=== PATIENT | female | born 1995 ===

== ENCOUNTER 2017-07-27 17:31 | Emergency (ER) | payer OTHER ==
[2017-07-27 18:20] VITALS: BP 125/72; PULSE 65; RESP 16; TEMP 99.2; O2SAT 99
--- NOTE | 2017-07-27 18:46 | ED PDOC ---
HPI: Skin/Bite Injury Time Seen by Provider: 07/27/17 18:22 Chief Complaint (Nursing): Abnormal Skin Integrity Chief Complaint (Provider): Rash History Per: Patient History/Exam Limitations: no limitations Onset/Duration Of Symptoms: Days (x 3) Current Symptoms Are (Timing): Still Present Quality Of Symptoms: Itching Additional Complaint(s): Brandy is a 21 y/o female with a history of hypertension who presents to the ED complaining of an itchy rash all over her body for the past 3 days. Patient denies any new foods, lotions, soaps, detergents or new medications. She has no known allergies. No fever or chills, no throat discomfort or shortness of breath. PMD: None Past Medical History Reviewed: Historical Data, Nursing Documentation, Vital Signs Vital Signs: Last Vital Signs Temp 99.2 F 07/27/17 18:18 Pulse 65 07/27/17 18:18 Resp 16 07/27/17 18:18 BP 125/72 07/27/17 18:18 Pulse Ox 99 07/27/17 18:48 - Medical History PMH: HTN - Surgical History Surgical History: No Surg Hx - Family History Family History: States: No Known Family Hx - Living Arrangements Living Arrangements: With Family - Social History Current smoker - smoking cessation education provided: No Alcohol: None Drugs: Denies - Immunization History Hx Tetanus Toxoid Vaccination: No Hx Influenza Vaccination: No Hx Pneumococcal Vaccination: No - Home Medications Home Medications: Ambulatory Orders Medication Instructions Recorded Doxycycline Hyclate 100 mg PO BID #28 cap 01/02/17 Mupirocin 2% Cream [Bactroban 2%] 30 gm EXT BID #3 tube 01/02/17 Ibuprofen [Motrin] 600 mg PO TID #21 tab 03/19/17 Unknown Antihypertensive. 03/19/17 traMADol [Ultram] 50 mg PO Q6 PRN #15 tab 03/19/17 DiphenhydrAMINE [Benadryl] 25 mg PO Q6H #1 bottle 07/27/17 Prednisone 50 mg PO DAILY #5 tablet 07/27/17 - Allergies Allergies/Adverse Reactions: Allergies Allergy/AdvReac Type Severity Reaction Status Date / Time No Known Allergies Allergy Verified 01/02/17 14:54 Review of Systems ROS Statement: Except As Marked, All Systems Reviewed And Found Negative Constitutional: Negative for: Fever, Chills ENT: Negative for: Throat Pain, Throat Swelling Respiratory: Negative for: Shortness of Breath Skin: Positive for: Rash Physical Exam - Reviewed Nursing Documentation Reviewed: Yes Vital Signs Reviewed: Yes - Physical Exam Appears: Positive for: Well, Non-toxic, No Acute Distress Head Exam: Positive for: ATRAUMATIC Skin: Positive for: Rash (Scattered urticarial maculopapular lesions noted to entire body) Cardiovascular/Chest: Positive for: Regular Rate, Rhythm. Negative for: Murmur Respiratory: Positive for: Normal Breath Sounds. Negative for: Respiratory Distress Extremity: Positive for: Normal ROM, Deformity. Negative for: Pedal Edema Neurologic/Psych: Positive for: Alert, Oriented - ECG O2 Sat by Pulse Oximetry: 99 (RA) Pulse Ox Interpretation: Normal Medical Decision Making Medical Decision Making: Time: 18:43 Initial Impression: 21 y/o female with allergic dermatitis Initial Plan: PO benadryl and prednisone in ED Prescriptions given for benadryl and prednisone. Patient was referred to clinic for follow up. Scribe Attestation: Documented by Carlitos Mcdowell, acting as a scribe for Beatriz Gutierrez PA-C Provider Scribe Attestation: All medical record entries made by the Scribe were at my direction and personally dictated by me. I have reviewed the chart and agree that the record accurately reflects my personal performance of the history, physical exam, medical decision making, and the department course for this patient. I have also personally directed, reviewed, and agree with the discharge instructions and disposition. Disposition - Clinical Impression Clinical Impression: Allergic dermatitis - Patient ED Disposition Is Patient to be Admitted: No Counseled Patient/Family Regarding: Studies Performed, Diagnosis, Need For Followup, Rx Given - Disposition Referrals: [facility] [Outside] Disposition: Routine/Home Disposition Time: 20:06 Condition: STABLE Additional Instructions: Take prescription as directed. Follow-up in 2-3 days in clinic. Prescriptions: DiphenhydrAMINE [Benadryl] 25 mg PO Q6H #1 bottle Prednisone 50 mg PO DAILY #5 tablet Instructions: Skin Rash, Dermatitis Forms: [facility] (Andorran) Print Language: IRAQI
== END 2017-07-27 21:00 | disposition home or self-care (01) ==
LOC: H.ER 17:31
DX: L23.9 Allergic contact dermatitis, unspecified cause (principal); I10 Essential (primary) hypertension